=== PATIENT | female | born 1970 | race African-American/Black ===

== ENCOUNTER → 2021-08-27 12:03 | Outpatient (CLI) | payer OTHER, SELFPAY ==
--- NOTE | ~2021-08-27 | US_ITS ---
EXAMINATION: US soft tissue head and neck DATE: 08/27/2021 12:24 INDICATION: Cervical lymphadenopathy. TECHNIQUE: Multiple grayscale and Doppler ultrasound images of the neck were obtained. COMPARISON: None FINDINGS: There are no pathologically enlarged lymph nodes in the patient's area of concern in left n jeffery. IMPRESSION: 1. No pathologically enlarged lymph nodes in the patient's area of concern in left neck. Reviewed, dictated and finalized at location A. IMPRESSION: 1. No pathologically enlarged lymph nodes in the patient's area of concern in l eft neck.
== END ==
PROVIDERS: Visit Provider Nurse Practitioner Family
DX: R59.0 Localized enlarged lymph nodes (principal)
CPT/HCPCS: 76536